=== PATIENT | female | born 1975 | race Caucasian/White ===

== ENCOUNTER 2019-02-06 06:42 | Day surgery (SDC) | payer BC ==
[2019-02-06] VITALS (11 sets, daily range): BP systolic 113–130; BP diastolic 57–78
[~2019-02-06] VITALS: Ht 160 cm; Wt 64.7 kg
[~2019-02-06 06:42] MED LIST: NO HOME MEDS
[2019-02-06] MEDS ORDERED: ringers solution, lacted 1,000 ML IV SCH ×2 (07:30→10:57)
[2019-02-06] MEDS ORDERED: famotidine 20mg tablet PO ONE (07:30)
[2019-02-06] MEDS ORDERED: cefazolin/dext.iso 2gm/50ml 50 ML IV ONE (07:30)
[2019-02-06 07:53] LABS: BASOPHILS % (AUTO) 0.6 % (0-1); EOSINOPHILS # (AUTO) 0.1 X10'3 (0-0.9); EOSINOPHILS % (AUTO) 2.9 % (0-6); LYMPHOCYTES # (AUTO) 1.5 X10'3 (1.1-4.8); LYMPHOCYTES % (AUTO) 35.3 % (21-51); MEAN CORPUSCULAR HEMOGLOBIN 27.8 PG (27.0-31.0); MEAN CORPUSCULAR HGB CONC 32.6 g/dL (33.0-36.5); MEAN CORPUSCULAR VOLUME 85.2 FL (78-98); MEAN PLATELET VOLUME 7.4 FL (7.4-10.4); MONOCYTES # (AUTO) 0.3 X10'3 (0-0.9); MONOCYTES % (AUTO) 7.8 % (2-12); NEUTROPHILS # (AUTO) 2.3 X10'3 (1.8-7.7); NEUTROPHILS % (AUTO) 53.4 % (42-75); PRE OP HEMATOCRIT 37.4 % (35.0-45.0); PRE OP HEMOGLOBIN 12.2 g/dL (12.0-16.0); PRE OP PLATELET COUNT 291 X10'3 (140-440); RED BLOOD COUNT 4.39 X10'6 (4.20-5.60); RED CELL DISTRIBUTION WIDTH 20.6 % (11.5-14.5)
[2019-02-06 08:16] LABS: ALBUMIN 3.3 G/DL (3.4-5.0); ALBUMIN/GLOBULIN RATIO 0.9 (1.1-1.5); ALKALINE PHOSPHATASE 46 IU/L (46-116); BLOOD UREA NITROGEN 11 MG/DL (7-18); BUN/CREATININE RATIO 17.7 (6.6-38.0); CALCIUM 8.7 MG/DL (8.5-10.1); CHLORIDE 105 MMOL/L (99-107); CREATININE 0.62 MG/DL (0.40-0.90); PRE OP ALT 22 U/L (30-65); PRE OP ANION GAP 6 (8-16); PRE OP AST 13 U/L (10-37); PRE OP BILIRUB, TOTAL 0.2 MG/DL (0.0-1.0); PRE OP GLUCOSE 91 MG/DL (70-104); PRE OP POTASSIUM 3.9 MMOL/L (3.4-5.1); PRE OP SODIUM 139 MMOL/L (135-145); TOTAL CARBON DIOXIDE 28.4 MMOL/L (24-32); TOTAL PROTEIN 7.1 G/DL (6.4-8.2); eGFR > 90 ML/MIN
[2019-02-06] MEDS ORDERED: LIDOcaine 1% 30ml preserv. free vial ONE (08:16)
[2019-02-06] MEDS ORDERED: BUPIVAcaine/PF 2.5 mg/ml (0.25%) 30ml vial ONE (08:16)
[2019-02-06] MEDS ORDERED: scopolamine 1.5mg patch.TD72 TD ONE (10:00)
[2019-02-06] MEDS ORDERED: sevoflurane 250ml liquid IH ONE (10:11)
[2019-02-06] MEDS ORDERED: fentaNYL /PF 50mcg/ml 5ml ampule ONE (10:11)
[2019-02-06] MEDS ORDERED: midazolam 2 mg/2 ml injection ONE (10:11)
[2019-02-06] MEDS ORDERED: albuterol 60 PUFF/8GM Inhaler IH ONE (10:11)
[2019-02-06] MEDS ORDERED: propofol inj 20 ML IV ONE (10:22)
[2019-02-06] MEDS ORDERED: rocuronium 10mg/ml inj IV ONE (10:22)
[2019-02-06] MEDS ORDERED: LIDOcaine 2% (20mg/ml) 5ml vial ONE (10:22)
[2019-02-06] MEDS ORDERED: ondansetron/PF 4mg/2ml inj IV PRN (11:00)
[2019-02-06] MEDS ORDERED: meperidine/PF 25mg/ml syringe IV PRN ×2 (11:00)
[2019-02-06] MEDS ORDERED: proCHLORperazine 10 MG/2 ml inj IV PRN (11:00)
[2019-02-06] MEDS ORDERED: morphine 4 MG/ML inj SYRINge IV PRN ×2 (11:00)
--- NOTE | 2019-02-06 11:43 | NUR ---
Received from OR via [facility], accompanied by Anesthesiologist DR COTE and report given by Anesthesiologist. PT DROWSY, DENIES PAIN, ABDOMEN W/3 LAP SITES W/BANDAIDS CDI. Addendum: 02/06/19 at 1304 by Nazanin Vuong RN Amended: Links added.
[2019-02-06] MEDS: meperidine/PF 25mg/ml syringe IV PRN ×2 (12:05→12:18)
[2019-02-06] MEDS ORDERED: dexamethasone sod phosphate 4mg/ml inj. ONE (12:08)
[2019-02-06] MEDS ORDERED: neostigmine methylsulfate 1 MG/ML 10ml vial ONE (12:08)
[2019-02-06] MEDS ORDERED: glycopyrrolate 0.2mg/ml inj ONE (12:08)
[2019-02-06] MEDS ORDERED: ondansetron/PF 4mg/2ml inj ONE (12:08)
[2019-02-06] MEDS ORDERED: oxyCODONE/APAP 5-325mg tablet PO PRN ×2 (12:45)
--- NOTE | 2019-02-06 13:13 | NUR ---
D/C INSTRUCTIONS GIVEN AND GONE OVER W/PT AND PTS , BOTH VERBALIZE UNDERSTANDING, PT HAD LARGE VOID, TOLERATES FLUIDS/CRACKERS, PAIN UNDER CONTROL, PERCOCET GIVEN PER MD ORDERS FOR PAIN CONTROL FOR RIDE HOME. PT D/CD VIA W/C TO PRIVATE VEHICLE W/O INCIDENT. Addendum: 02/06/19 at 1345 by Nazanin Vuong RN Amended: Links added.
== END 2019-02-06 13:13 | disposition home or self-care (01) ==
LOC: PAS 06:42
PROVIDERS: ATTEND Surgery
DX: K40.91 Unilateral inguinal hernia, without obstruction or gangrene, recurrent (principal); Z87.891 Personal history of nicotine dependence; Z88.0 Allergy status to penicillin; Z98.890 Other specified postprocedural states
CPT/HCPCS: 49651; 80053; 85025; C1781; J1100; J2001; J2175; J2250; J2405; J2704; J2710; J3010; J3490; J7120; S2900; A4215; A4618